=== PATIENT | female | born 1930 | race Caucasian/White ===

== ENCOUNTER 2019-05-30 10:12 | Emergency (ER) | payer MEDICARE, OTHER ==
[2019-05-30 10:54] VITALS: BP 180/56
--- NOTE | 2019-05-30 11:27 | UC ---
General HPI - HPI Summary HPI Summary: Patient is a delightful 89-year-old female who is by herself. Patient states at 8:30 this morning she was walking down the stairs on her socks. Patient states she's flip-flopping landing on her back. Patient did not hit her head. Patient was consciousness. Patient was able to get up on her own. Patient states she took some Tylenol that seemed to help. Patient with mild left posterior rib pain. Patient states she went out to meet some friends. Patient states she cotton pain became much worse in her left ribs. Patient called her family who brought her here for evaluation. Patient without any blood in her urine. No abdominal pain. No nausea vomiting. No chest pain. Patient states pain is worse with movement and deep breath. Patient without any neck pain. Patient's medications reviewed this visit. 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 [employer] Onset/Duration: Sudden Onset Onset Severity: Moderate Current Severity: Moderate Pain Intensity: 9 - Allergy/Home Medications Allergies/Adverse Reactions: Allergies Allergy/AdvReac Type Severity Reaction Status Date / Time ?antibiotic AdvReac Unknown Nausea Uncoded 05/30/19 10:42 Home Medications: Home Medications Acetaminophen TAB* [Tylenol TAB*] 650 mg PO Q4H PRN 05/30/19 [History Confirmed 05/30/19] Aspirin [Aspirin Childrens 81 MG] 81 mg PO DAILY 05/30/19 [History Confirmed ] PMH/Surg Hx/FS Hx/Imm Hx Previously Healthy: Yes Cardiovascular History: Hypertension, Myocardial Infarction - Surgical History Surgical History: None - Family History Known Family History: Positive: Other - Denies H of skin disorder, Non- Contributory - Social History Occupation: Retired Lives: Alone Alcohol Use: None Substance Use Type: None Smoking Status (MU): Never Smoked Tobacco Review of Systems All Other Systems Reviewed And Are Negative: Yes Constitutional: Positive: Negative Skin: Positive: Negative Eyes: Positive: Negative ENT: Positive: Negative Respiratory: Positive: Negative Cardiovascular: Positive: Negative Gastrointestinal: Positive: Negative Genitourinary: Positive: Negative Motor: Positive: Negative Neurovascular: Positive: Negative Musculoskeletal: Positive: Other: - left posterior rib pain Is Patient Immunocompromised?: No Physical Exam - Summary Physical Exam Summary: Vital Signs Reviewed: Yes A+Ox3,discomfort with movement, position change Eyes: Conjunctiva Clear, ISAURA. EOM intact and full ENT: Hearing grossly normal TM x 2 clear, no hemotymo b/l, no septal hematoma b /l, mmoist, uvula midline, no exudate, no erythema Neck: Positive: Supple no pain AROM Respiratory: Positive: No respiratory distress, No accessory muscle use + CTA throughout no w/r p with pain left posterior rib with deep breath Cardiovascular: RRR nl s1, s2 no m/r CBT <2 sec abd soft + BS nt/nd no guarding, no distension Musculoskeletal Exam: GRANADO x 4 without difficulty Strength Intact, ROM Intact pt with left parapina pain T8-T10 - no crepitus. 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 Skin: Positive: no rash, no ecchymosis Triage Information Reviewed: Yes Vital Signs: Initial Vital Signs Temp 98.4 F 05/30/19 10:44 Pulse 75 05/30/19 10:44 Resp 99 05/30/19 10:44 BP 180/56 05/30/19 10:44 Pulse Ox 100 05/30/19 10:44 Diagnostics - Radiology No standard instances Radiology Interpretation Completed By: Radiologist - Patient Name: AINSLEY AGUIRRE Medical Record#: [id number] Ordering Physician: Marisol Cordero MD Acct.#: [id number] : 1930 Age: 89 Sex: F Location: [facility] [place] Exam Date: 05/30/19 112 ADM Status: REG ER Order Information: FOOT RIGHT 3+ VWS Accession Number: [id number] CPT: 71759 Right foot injury. 3 views of the right foot are reviewed. There is no fracture or dislocation. No other bone or joint abnormalities identified. IMPRESSION: No fracture of the right foot <Electronically signed by Charo Jensen MD in OV> 05/30/19 1159 Dictated By: Charo Jensen MD Dictated Date/ Time: 05/30/19 1158 Transcribed Date/Time: 05/30/198 Copy to: CC:Marisol Cordero MD; Patrick Calle DO Imaging - [facility] [address] [place] [address] [address] [address] ph ) ph ([phone]) ph ([phone]) This report is only to be considered final once signed by the Provider(s) as displayed in the "<Electronically Signed by >" field (s). Absence of a signature indicates the report is in a draft status and still needs to be finalized. In the event this document was created by someone other than the signing Provider, the individual initiating the document will be listed in the "Entered by:" or "Dictated by:" spicer. 1 of 1 Patient Name: AINSLEY AGUIRRE Medical Record#: [id number] Ordering Physician: Marisol Cordero MD Acct.#: [id number] : 1930 Age: 89 Sex: F Location: [facility] Exam Date: 05/30/19 112 ADM Status: REG ER Order Information: RIBS LT UNI W/PA CH MIN 3 VWS Accession Number: [id number] CPT: 13324 INDICATION: Left rib injury. COMPARISON: There are no relevant prior studies available for comparison. TECHNIQUE: 4 views of the left ribs and dual-energy PA views of the chest were obtained. FINDINGS: The lungs are clear. There is no pleural effusion or pneumothorax. The cardiomediastinal silhouette is within normal limits. The upper abdominal contents are normal. Osseous structures are unremarkable. Specifically, no displaced rib fracture is identified. IMPRESSION : NO DISPLACED FRACTURE IS IDENTIFIED BY RADIOGRAPH. <Electronically signed by Stef Mcclellan MD in OV> 05/30/19 1203 Dictated By: Stef Mcclellan MD Dictated Date/Time: 05/30/19 1200 Transcribed Date/Time: 05/30/19 1200 Copy to: CC:Marisol Cordero MD; Patrick Calle DO Imaging [facility] [address] [address] ph ( [phone]) ph ([phone]) ph ([phone]) This report is only to be considered final once signed by the Provider(s) as displayed in the "<Electronically Signed by >" field (s). Absence of a signature indicates the report is in a draft status and still needs to be finalized. In the event this document was created by someone other than the signing Provider, the individual initiating the document will be listed in the "Entered by:" or "Dictated by:" spicer. 1 of 1 Patient Name: AINSLEY AGUIRRE Medical Record#: [id number] Ordering Physician: Marisol Cordero MD Acct.#: [id number] : 1930 Age: 89 Sex: F Location: [facility] Exam Date: 05/30/19 112 ADM Status: REG ER Order Information: FOOT RIGHT 3+ VWS Accession Number: [id number] CPT: 59978 Right foot injury. 3 views of the right foot are reviewed. There is no fracture or dislocation. No other bone or joint abnormalities identified. IMPRESSION: No fracture of the right foot <Electronically signed by Charo Jensen MD in OV> 1159 Dictated By: Charo Jenesn MD Dictated Date/Time: 05/30/19 1158 Transcribed Date/Time: 05/30/19 1158 Copy to: CC:Marisol Cordero MD; Patrick Calle DO Imaging - [facility] Imaging - [facility] Imaging - [facility] [id number] [place] [address] ph ([phone]) ph ([phone]) ph ([phone]) This report is only to be considered final once signed by the Provider(s) as displayed in the "< Electronically Signed by >" field (s). Absence of a signature indicates the report is in a draft status and still needs to be finalized. In the event this document was created by someone other than the signing Provider, the individual initiating the document will be listed in the "Entered by:" or "Dictated by:" spicer. Re-Evaluation - Re-Evaluation First Eval Change: Improved - Reviewed imaging studies with patient. No acute fracture noted. We will place Dion wrap the patient states helps a little bit. Had a long discussion with patient and her grandson who comes days her about taking deep slow breaths several times an hour. Using a towel or pillow to splint. Okay to take Tylenol as well as occasional ibuprofen. We'll also send a prescription for lidocaine patches. Precaution patient this may not be covered by her insurance. Strict return precautions discussed. Follow with PCP. Family member will stay with patient tonight. Also recommended she use cane. Patient states understanding agreement with plan. Course/Dx - Course Course Of Treatment: Patient's age 9-year-old female who had a mechanical slip and fall on the stairs a 2 this morning. Patient with point tenderness in the region of T10 posterior rib. Patient did not hit her head. No neck pain. No chest pain. No abdominal pain. No hematuria. Patient states pain is worse with movement and deep breath. Patient took Tylenol this morning. Patient states pain got worse after she cough. On exam vital signs are stable. Patient with point tenderness without crepitus. We'll check imaging studies. Patient at this time is declined Motrin but states she can take if needed. Will closely reassess. elevated BP - history of same, related to visit - recommend pcp recheck - Diagnoses Provider Diagnosis: Contusion of rib on right side, Fall Discharge ED - Sign-Out/Discharge Documenting (check all that apply): Patient Departure All imaging exams completed and their final reports reviewed: Yes - Discharge Plan Condition: Stable Disposition: HOME Prescriptions: Lidocaine PATCH 5%* [Lidoderm 5% Patch*] 1 patch TRANSDERM DAILY #20 patch Patient Education Materials: Fall Prevention for Older Adults (ED), Rib Contusion (ED) Referrals: Patrick Calle DO [Primary Care Provider] - Additional Instructions: - Take tylenol every 8 hours for pain - Okay to take ibuprofen (Advil, Motrin) 400mg every 8 hours for pain - Okay to use pain patch as prescribed - apply for 12 hours, remove for 12 hours - Wear dion wrap for comfort and support - it is VERY important you take deep breaths, several times an hour, to prevent pneumonia -apply heat or ice - whichever helps your discomfort - It is recommended you use a cane for balance while you heal - contact your doctor to schedule a follow-up appointment - contact your doctor or go to the emergency department for uncontrolled pain, blood in your urine, short of breath or ANY other concerns - Billing Disposition and Condition Condition: STABLE Disposition: Home
[2019-05-30] MEDS ORDERED: Ibuprofen TAB* 400 MG PO ONE (12:27)
== END 2019-05-30 12:45 | disposition home or self-care (01) ==
LOC: UCCORT 10:12
DX: S20.221A Contusion of right back wall of thorax, initial encounter (principal); W10.9XXA Fall (on) (from) unspecified stairs and steps, initial encounter; Y93.01 Activity, walking, marching and hiking; Y92.009 Unspecified place in unspecified non-institutional (private) residence as the place of occurrence of the external cause; I10 Essential (primary) hypertension; I25.2 Old myocardial infarction
CPT/HCPCS: 72070; 99212; A9270-GY; G0463

== ENCOUNTER 2019-07-14 11:08 | Emergency (ER) | payer MEDICARE, OTHER ==
--- OUTSIDE RECORDS SUMMARY | 2019-07-14 11:41 | XMS REPORT | Continuity of Care Document ---
:1930 External Reference #:[id number] Author Name Patrick Calle DO Address [address] [place] [address] Problems Active Problems Provider Date Essential hypertension Mikey Dhaliwal MD Onset: 01/14/2008 Labyrinthitis Mikey Dhaliwal MD Onset: 01/14/2008 Chronic obstructive lung disease Mikey Dhaliwal MD Onset: 08/04/2007 Disorder of urethra Mikey Dhaliwal MD Onset: 08/02/2006 Osteoporosis Mikey Dhaliwal MD Onset: 01/05/2005 Social History Type Date Description Comments Sex Unknown Tobacco Use Start: Unknown Never Smoked Cigarettes Tobacco Use Start: Unknown Patient has never smoked Smoking Status Reviewed: 04/22/19 Patient has never smoked Allergies, Adverse Reactions, Alerts Active Allergies Reaction Severity Comments Date Chlorthalidone Rash 01/23/2012 Codeine 01/04/2005 Sulfa Drugs 11/18/2014 Amoxicillin Itching 06/06/2018 Cephalexin Itchy 06/06/2018 Medications Active Medications SIG Qnty Indications Ordering Date Provider Levothyroxine Sodium take 1 tablet by 90tabs E03.9 Patrick Calle, 2017 mouth once daily DO 50mcg Tablets Fluticasone two sprays in 9.900ml R42 Patrick Calle, 02/04/2018 Propionate each nostril once DO 50mcg/Act daily Suspension Aspir-81 1 by mouth every 30tabs Annia Jauregui, 02/15/2017 81mg Tablets day GOLD MORROW Meclizine HCL 1-2 three times a 15tabs Patrick Calle, 03/12/2015 12.5mg day as needed for DO Tablets dizziness Major Tears qhs Mikey Dhaliwal, 03/01/2012 Op Oint MD Ointment Lisinopril take one tablet 90taPatrick Yang, 01/23/2012 10mg Tablets by mouth every DO day History Medications Metronidazole 1 by mouth 21tabs Patrick Calle, DO 04/22/2019 - 500mg Tablets three times a 04/29/2019 day x 7 days Immunizations CPT Code Status Date Vaccine Lot # [id number] Given 09/15/2015 Prevnar 13 Pneumococal Conjugate Vaccine [id number] Given 09/14/2009 Afluria Or Fluvirin Flu Vac Intramuscular 24670 Given 01/28/2007 Pneumococcal 23 Immunization Adult Or Immunosuppressed Patient 03036 Given 02/15/2004 Immunization Td 7 Yrs Or Older 98604 Refused 10/23/2018 Fluzone Highdose Age 65 And Over Preservative & Antibiotic Free 66794 Refused 09/04/2018 Fluzone Highdose Age 65 And Over Preservative & Antibiotic Free Vital Signs Date Vital Result Comment 06/05/2019 3:31pm Weight 124.00 lb Heart Rate 88 /min BP Systolic 110 mmHg BP Diastolic 62 mmHg Respiratory Rate 16 /min Height 61 inches 5'1" BMI (Body Mass Index) 23.4 kg/m2 04/22/2019 11:08am Weight 124.00 lb Heart Rate 92 /min BP Systolic 138 mmHg BP Diastolic 68 mmHg Respiratory Rate 17 /min Height 61 inches 5'1" BMI (Body Mass Index) 23.4 kg/m2 Results Test Date Facility Test Result H/L Range Note Basic (BMP) 04/16/2019 [facility] Sodium 140 mmol/L 135-146 1 Potassium 4.2 mmol/L 3.5-5.2 Chloride# 104 mmol/L 97-110 2 Carbon Dioxide 26 mmol/L 24-34 Glucose 90 mg/dL 70-105 BUN 30 mg/dL High 6-26 Creatinine 1.1 mg/dL 0.5-1.4 Calcium 9.3 mg/dL 8.5-10.5 3 Female Egfr 43 Low >60 4 Male Egfr 57 Low >60 5 Anion Gap 10 mmol/L 5-15 6 CBC with Auto Diff-fcmg 04/16/2019 [facility] WBC 5.6 K/uL 4.1-11.0 RBC 4.29 M/uL 4.00-5.40 Hemoglobin 13.0 gm/dL 12.0-16.0 Hematocrit 38.8 % 36.0-47.0 MCV 90.5 fL 80.0-97.0 MCH 30.3 pg 27.0-32.0 MCHC 33.5 g/dL 32.0-36.0 RDW 14.6 % High 11.5-14.5 PLT Count 229 K/ul 140-400 MPV 7.6 FL 7.1-10.7 Neutrophil 57.4 % 35.0-75.0 Lymphocyte 28.4 % 16.0-52.0 Monocyte 9.5 % 2.0-10.0 Eosinophil 3.7 % 0.0-5.0 Basophil 1.0 % 0.0-4.0 Abs Neutrophils 3.2 K/uL 2.1-8.0 Abs Lymphocytes 1.6 K/uL 0.8-5.5 Abs Monocytes 0.5 K/uL 0.1-1.0 Abs Eosinophils 0.2 K/uL 0.0-0.5 Abs Basophils 0.1 K/uL 0.0-0.3 Laboratory test finding 04/16/2019 [facility] TSH 1.67 uIU/mL 0.35-4.94 Lipid Treatment 04/16/2019 [facility] Cholesterol 232 mg/dL High 50-199 Triglycerides 84 mg/dL 30-200 HDL 58 mg/dL 35-85 7 Chol/ HDL Ratio 4.0 ratio 3.7-5.6 VLDL 17 mg/dL 2-29 LDL (Calc) 157 mg/dL High 20-99 8 Alt 8 U/L 3-42 Ast 16 U/L 8-42 1 Updated reference range on new analyzer 2 Updated reference range on new analyzer 3 Updated reference range 01-29-2019 4 Concerning GFR Guidelines for Americans: Normal function or mild renal disease, if clinically at risk: >/= 60 mL/min Moderately decreased: 30-59 Severely decreased: 15-29 Renal failure: <15 There is reduced accuracy above 60ml/min/1.73 m squared, but the numeric value may be clinically useful in the near 60 range 5 Concerning GFR Guidelines: Normal function or mild renal disease, if clinically at risk: >/= 60 mL/min Moderately decreased: 30-59 Severely decreased: 15-29 Renal failure: <15 There is reduced accuracy above 60ml/min/1.73 m squared, but the numeric value may be clinically useful in the near 60 range Glomerular Filtration Rate (GFR) is estimated based on the CKD-EPI equation, which assumes a steady state for creatinine as recommended by the National Kidney Disease Education Program in conjunction with the National Institutes of Health and the National Kidney Foundation. Clinical conditions in which it may be necessary to measure GFR by using clearance methods include extremes of age and body size, severe malnutrition or obesity, diseases of skeletal muscle, paraplegia or quadriplegia, vegetarian diet, rapidly changing kidney function, and calculation of the dose of potentially toxic drugs that are excreted by the kidneys. 6 Updated Reference Range -2017 7 Per NCEP ATP III Guidelines: Results lower than 40 mg/dL are suggestive of increased risk for coronary artery disease. Results > or = to 60 mg/dL are considered a negative risk factor. 8 Per NCEP ATP III Guidelines: Normal Population <130 Patients with medical conditions: CHD/DM Optimal: <100 Borderline high: 130-159 High: 160-189 Very high: >189 Procedures Date Code Description Status 09/10/2017 347128648 Bone Mineral Density Test Completed 08/09/2015 503018609 Bone Mineral Density Test Completed Medical Devices Description No Information Available Encounters Type Date Location Provider Dx Diagnosis Office Visit 04/22/2019 [facility] Patrick Calle DO Z00.00 Encntr for general 11:00a adult medical exam w/o abnormal findings I10 Essential (primary) hypertension E03.9 Hypothyroidism, unspecified M81.0 Age-related osteoporosis w/o current pathological fracture R05 Cough N36.8 Other specified disorders of urethra Z85.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.2 Mixed hyperlipidemia R42 Dizziness and giddiness K13.79 Other lesions of oral mucosa K05.01 Acute gingivitis, non-plaque induced I73.9 Peripheral vascular disease, unspecified 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, LEFT ear Assessments Date Code Description Provider 06/05/2019 S23.41xD Sprain of ribs, subsequent encounter Patrick Calle DO 06/05/2019 W10.9xxD Fall (on) (from) unspecified stairs and Patrick Calle DO steps, subsequent encounter 06/05/2019 S90.31xD Contusion of RIGHT foot, subsequent Patirck Calle DO encounter 04/22/2019 Z00.00 Encntr for general adult medical exam w/o Patrick Calle DO abnormal findings 04/22/2019 I10 Essential (primary) hypertension CallePatrickDO 04/22/2019 E03.9 Hypothyroidism, unspecified CallePatrickDO 04/22/2019 M81.0 Age-related osteoporosis without current Artis CalleewDO pathological fractu 04/22/2019 R05 Cough Patrick CalleDO 04/22/2019 N36.8 Other specified disorders of urethra Luc PatrickDO 04/22/2019 Z85.828 Personal history of other malignant neoplasm Artis CalleewDO of skin 04/22/2019 E78.2 Mixed hyperlipidemia CalleArtis rosasewDO 04/22/2019 R42 Dizziness and giddiness CalleArtis rosasewDO 04/22/2019 K13.79 Other lesions of oral mucosa CallePatrickDO 04/22/2019 K05.01 Acute gingivitis, non-plaque induced CalleArtis rosasewDO 04/22/2019 I73.9 Peripheral vascular disease, unspecified Calle, PatrickDO 04/22/2019 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 She was advised to continue using ice or heat whichever shefinds better. Patient was advised to gradually increase her physical activity. She was advised to use cane or walker for ambulation. Patient was advised to continue taking ibuprofen and Tylenol.Follow up:Follow up as scheduled.W10.9xxD Fall (on) (from) unspecified stairs and steps, subsequent encounterComments: Patient was advised to try heat and ice. She was advised to continue using ice or heat whichever shefinds better. Patient was advised to gradually increase her physical activity. She was advised to use cane or walker for ambulation. Patient was advised to continue taking ibuprofen and Tylenol as needed.S90.31xD Contusion of RIGHT foot, subsequent encounterComments:Resolving. We will monitor. Functional Status Functional Condition Comment Date Status GLASSES Active Mental Status Description No Information Available Referrals Description No Information Available
[2019-07-14 11:58] VITALS: BP 142/89
--- NOTE | 2019-07-14 12:33 | UC ---
Ear Complaint HPI - HPI Summary HPI Summary: Patient is an 89yo female presenting with a "sore" behind her left ear x2 weeks. Patient states she thought it would go away on its own but it has not. Patient notes tenderness. Patient denies active drainage from the area. Notes crusting around the sore. Denies applying anything to the sore. Denies anything like this before. Believes it may be caused by pressure from her glasses. - History of Current Complaint Chief Complaint: UCEar Stated Complaint: LEFT EAR COMPLAINT Hx Obtained From: Patient Pain Intensity: 0 - Allergies/Home Medications Allergies/Adverse Reactions: Allergies Allergy/AdvReac Type Severity Reaction Status Date / Time ?antibiotic AdvReac Unknown Nausea Uncoded 07/14/19 11:55 PMH/Surg Hx/FS Hx/Imm Hx Previously Healthy: Yes Endocrine History: Dyslipidemia - Surgical History Surgical History: None - Family History Known Family History: Positive: Other - Denies H of skin disorder, Non- Contributory - Social History Alcohol Use: None Substance Use Type: None Smoking Status (MU): Never Smoked Tobacco Review of Systems All Other Systems Reviewed And Are Negative: Yes Constitutional: Positive: Negative. Negative: Fever, Chills Skin: Positive: Other - sore behind left ear Eyes: Positive: Negative ENT: Positive: Negative. Negative: Ear Ache Respiratory: Positive: Negative Cardiovascular: Positive: Negative Gastrointestinal: Positive: Negative. Negative: Vomiting, Nausea Musculoskeletal: Positive: Negative. Negative: Arthralgia, Edema, Myalgia Neurological: Positive: Negative. Negative: Headache Physical Exam Triage Information Reviewed: Yes Appearance: Well-Appearing, No Pain Distress, Well-Nourished Vital Signs: Initial Vital Signs Temp 98.6 F 07/14/19 11:55 Pulse 81 07/14/19 11:55 Resp 18 07/14/19 11:55 BP 142/89 07/14/19 11:55 Pulse Ox 100 07/14/19 11:55 Vital Signs Reviewed: Yes Eyes: Positive: Conjunctiva Clear ENT: Positive: Hearing grossly normal Neck exam: Normal Neck: Positive: Supple, Nontender, No Lymphadenopathy Respiratory Exam: Normal Respiratory: Positive: Lungs clear, Normal breath sounds, No respiratory distress Cardiovascular Exam: Normal Cardiovascular: Positive: RRR Neurological: Positive: Alert Psychological: Positive: Age Appropriate Behavior Skin: Positive: Other - 1cm ulceration noted behind left ear. crusting around lesion. no active drainage or bleeding. no fluctuance. no tenderness noted. Ear Complaint Course/Dx - Course Course Of Treatment: Discussed with patient unknown etiology of ulcer behind her ear but that it may be an ulcer caused by pressure from her glasses. No active drainage, so the wound could not be cultured. Instructed her to take Tylenol and/or ibuprofen for pain relief. I am treating her with mupirocin ointment for possible bacterial source. Instructed her to apply Band-Aid to provide barrier between the wound and her glasses. Strongly encouraged her to follow up with her PCP or call manager as soon as possible for further evaluation of the wound. Patient voiced understanding and agreed to treatment plan. - Differential Dx/Diagnosis Provider Diagnosis: Ulceration of auricle Discharge ED - Sign-Out/Discharge Documenting (check all that apply): Patient Departure All imaging exams completed and their final reports reviewed: No Studies - Discharge Plan Condition: Stable Disposition: HOME Prescriptions: Mupirocin 2% OINT* [Bactroban 2 % Oint*] 1 applic TOPICAL BID 7 Days #1 tube Patient Education Materials: Acute Wound Care (ED) Referrals: Remy Figueroa MD [Medical Doctor] - As Soon As Possible Patrick Calle DO [Primary Care Provider] - As Soon As Possible Additional Instructions: As discussed, use the antibiotic ointment twice daily. You may gently wash with soap and warm water before applying the ointment. You may apply a small Band-Aid over the ointment if you wish. I strongly encourage you to follow up with your PCP or your call manager as soon as possible for further evaluation. I have also provided you with a dermatology referral listed below. Return or go to the emergency room if you experience fever, chills, nausea, vomiting, or increased drainage from the wound. - Billing Disposition and Condition Condition: STABLE Disposition: Home - Attestation Statements Provider Attestation: These infections are spread by oral secretions. Do not share eating or drinking utensils. Frequent hand washing is important. Clean items that may get your secretions on them such as cell phones, ipads, computer mouse, television remotes. Once you have been on antbiotics for 2 days, change your pillowcase and your toothbrush
== END 2019-07-14 12:46 | disposition home or self-care (01) ==
LOC: UCCORT 11:08
DX: L98.499 Non-pressure chronic ulcer of skin of other sites with unspecified severity (principal)
CPT/HCPCS: 99212; G0463